=== PATIENT | female | born 1940 | race African-American/Black ===

== ENCOUNTER 2017-12-13 13:34 | Emergency (ER) | payer OTHER, MEDICAID ==
[~2017-12-13] VITALS: Ht 177.8 cm; Wt 66.0 kg
[2017-12-13] MEDS ORDERED: ACETAMINOPHEN WITH CODEINE 300/30MG TABLET PO STA (15:17)
[2017-12-13 16:59] VITALS: BP 171/83
== END 2017-12-13 17:54 | disposition home or self-care (01) ==
LOC: ER 13:34
DX: S52.532A Colles' fracture of left radius, initial encounter for closed fracture (principal); Z87.828 Personal history of other (healed) physical injury and trauma; W01.0XXA Fall on same level from slipping, tripping and stumbling without subsequent striking against object, initial encounter; Y93.89 Activity, other specified; Y92.018 Other place in single-family (private) house as the place of occurrence of the external cause
CPT/HCPCS: 29125; 73110; 73130; 99284

== ENCOUNTER 2020-11-19 20:36 | Emergency (ER) | payer OTHER, MEDICAID ==
[~2020-11-19] VITALS: Ht 170.2 cm; Wt 66.0 kg
[2020-11-19 21:23] VITALS: BP 141/88
[2020-11-20 00:10] LABS: CHLORIDE 104 mEq/L (98-107)
[2020-11-20 02:05] LABS: HEMATOCRIT. 42.7 % (36.0-48.0); HEMOGLOBIN. 13.3 g/dL (12.0-16.0); MEAN CORPUSCULAR HEMOGLOBIN 25.9 pg (28.0-32.0); MEAN CORPUSCULAR VOLUME 83.3 fL (81.0-99.0); MEAN PLATELET VOLUME 8.8 fl (7.4-10.4); PLATELET 318 x1000/uL (130-400); RED BLOOD CELL COUNT 5.13 mill/uL (4.2-5.4)
[2020-11-20] MEDS ORDERED: ALBU6.7H9 INH (02:19)
[2020-11-20 05:00] LABS: ATYPICAL LYMPHOCYTES 1
[2020-11-20 05:01] LABS: PLATELET ESTIMATE NORMAL
== END 2020-11-20 02:36 | disposition home or self-care (01) ==
LOC: ER 21:35
DX: J44.9 Chronic obstructive pulmonary disease, unspecified (principal); R06.02 Shortness of breath
CPT/HCPCS: 36415; 71045; 80053; 83880; 84484; 85025; 93005; 99285

== ENCOUNTER 2020-11-22 12:40 | Emergency (ER) | payer OTHER, MEDICAID ==
[~2020-11-22] VITALS: Ht 172.7 cm; Wt 66.0 kg
[~2020-11-22 12:40] MED LIST: ALBU6.7H9 INH
[2020-11-22] MEDS ORDERED: AZIT250T12 MT (13:44)
[2020-11-22] MEDS ORDERED: AMOX-424 MT (13:44)
[2020-11-22 14:55] VITALS: BP 130/64
== END 2020-11-22 14:59 | disposition home or self-care (01) ==
LOC: ER 12:40
DX: U07.1 COVID-19 (principal); J12.82 Pneumonia due to coronavirus disease 2019; M19.90 Unspecified osteoarthritis, unspecified site
CPT/HCPCS: 71045; 99284; C9803; U0003; U0005

== ENCOUNTER 2022-02-04 19:12 | Inpatient (IN) | payer OTHER, MEDICAID ==
[~2022-02-04] VITALS: Ht 185.4 cm; Wt 59.0 kg
[~2022-02-04 19:12] MED LIST changes: +AMOX-424 MT; +AZIT250T12 MT
[2022-02-04 21:39] LABS: BASOPHILS % 0.7 % (0.0-2.0); EOSINOPHILS % 1.3 % (0.0-5.0); HEMATOCRIT. 36.3 % (36.0-48.0); HEMOGLOBIN. 11.6 g/dL (12.0-16.0); LYMPHOCYTES % 22.3 % (20.0-50.0); MEAN CORPUSCULAR HEMOGLOBIN 26.2 pg (28.0-32.0); MEAN CORPUSCULAR VOLUME 82.1 fL (81.0-99.0); MEAN PLATELET VOLUME 9.8 fl (7.4-10.4); MONOCYTES % 10.9 % (2.0-8.0); NEUTROPHILS % 64.8 % (40.0-76.0); PLATELET 199 x1000/uL (130-400); RED BLOOD CELL COUNT 4.43 mill/uL (4.2-5.4); RED CELL DISTRIBUTION WIDTH 14.2 % (11.6-14.6)
[2022-02-04 21:47] LABS: CHLORIDE 112 mEq/L (98-107)
[2022-02-04 22:00] LABS: CREATINE KINASE 33 IU/L (26-192)
[2022-02-04] MEDS ORDERED: ACETAMINOPHEN 325MG TABLET PO ONE (22:30)
[2022-02-05 01:24] LABS: CLARITY URINE CLEAR (CLEAR); COLOR URINE YELLOW (YELLOW); KETONES URINE NEGATIVE (NEGATIVE); LEUKOCYTE ESTERASE URINE NEGATIVE (NEGATIVE); NITRITE URINE NEGATIVE (NEGATIVE); OCCULT BLOOD URINE NEGATIVE (NEGATIVE); PH URINE 6.5 (4.5-8.0); PROTEIN URINE NEGATIVE (NEGATIVE); SPECIFIC GRAVITY URINE 1.013 (1.005-1.030)
[2022-02-05 01:42] LABS: *AMPHETAMINES SCREEN URINE NEGATIVE (NEGATIVE); *BARBITURATES SCREEN URINE NEGATIVE (NEGATIVE); *BENZODIAZEPINES SCREEN URINE NEGATIVE (NEGATIVE); *COCAINE SCREEN URINE NEGATIVE (NEGATIVE); CANNABINOID URINE SCREEN NEGATIVE (NEGATIVE); METHADONE URINE SCREEN NEGATIVE (NEGATIVE); OPIATES URINE SCREEN NEGATIVE (NEGATIVE); PHENCYCLIDINE URINE SCREEN NEGATIVE (NEGATIVE)
[2022-02-05 09:50] VITALS: BP_SYST 147; BP_SYST 148; BP_DIAS 71
[2022-02-05 12:00] VITALS: BP 144/69
[2022-02-05] MEDS ORDERED: ONDANSETRON HCL 4MG/2ML INJ IV PRN (13:15)
[2022-02-05] MEDS ORDERED: ENOXAPARIN 40MG/0.4ML SYR SUBCUT SCH (14:00)
[2022-02-05 16:00] VITALS: BP 134/66
[2022-02-05 17:22] LABS: CREATINE KINASE 49 IU/L (26-192); CREATINE KINASE MB FRACTION < 1.0 ng/mL (0.5-3.6); HDL CHOLESTEROL 81 mg/dL (40-59); LDL CHOLESTEROL 95 mg/dL (5-100)
[2022-02-05] MEDS: PANTOPRAZOLE SODIUM 40 MG/VIAL IV SCH (17:41)
[2022-02-05] MEDS: LOSARTAN POTASSIUM 25 MG TABLET PO SCH (17:42)
[2022-02-05] MEDS: AMLODIPINE 5MG TABLET PO SCH (17:42)
[2022-02-05] MEDS: DOCUSATE SODIUM 100MG CAPSULE PO SCH ×2 (17:42→17:44)
[2022-02-05] MEDS: POLYETHYLENE GLYCOL 3350 (17GM) 1 DOSE PACK PO SCH (17:42)
[2022-02-05] MEDS: SODIUM CHLORIDE 0.9% 1,000 ML IV SCH (17:44)
[2022-02-05 20:00] VITALS: BP 122/62
[2022-02-05] MEDS ORDERED: DEXAMETHASONE 4MG/ML 1ML VIAL IV NR (22:00)
[2022-02-06] VITALS: BP 104/74
[2022-02-06] MEDS: SODIUM CHLORIDE 0.9% 1,000 ML IV SCH ×2 (03:03→16:47)
[2022-02-06] MEDS: ACETAMINOPHEN 325MG TABLET PO PRN ×2 (03:04→13:33)
[2022-02-06 04:00] VITALS: BP 145/69
[2022-02-06 08:00] VITALS: BP 132/77
[2022-02-06] MEDS: LOSARTAN POTASSIUM 25 MG TABLET PO SCH (08:53)
[2022-02-06] MEDS: PANTOPRAZOLE SODIUM 40 MG/VIAL IV SCH (08:53)
[2022-02-06] MEDS: POLYETHYLENE GLYCOL 3350 (17GM) 1 DOSE PACK PO SCH (08:53)
[2022-02-06] MEDS: DOCUSATE SODIUM 100MG CAPSULE PO SCH ×2 (08:53→16:42)
[2022-02-06] MEDS: AMLODIPINE 5MG TABLET PO SCH (08:54)
[2022-02-06] MEDS ORDERED: PNEUMOCOCCAL 23-VAL P-SAC VAC 0.5 ML IM ONE (10:00)
[2022-02-06 12:00] VITALS: BP 128/67
[2022-02-06] MEDS: DEXAMETHASONE 4MG/ML 1ML VIAL IV SCH ×2 (14:20→19:03)
[2022-02-06 16:00] VITALS: BP 167/88
[2022-02-06] MEDS: CLONIDINE 0.1MG TABLET PO PRN ×2 (16:40→16:42)
[2022-02-06 16:41] LABS: BASOPHILS % 0.4 % (0.0-2.0); EOSINOPHILS % 0.6 % (0.0-5.0); HEMATOCRIT. 38.6 % (36.0-48.0); HEMOGLOBIN. 12.3 g/dL (12.0-16.0); LYMPHOCYTES % 14.8 % (20.0-50.0); MEAN CORPUSCULAR HEMOGLOBIN 26.5 pg (28.0-32.0); MEAN PLATELET VOLUME 10.4 fl (7.4-10.4); MONOCYTES % 11.3 % (2.0-8.0); NEUTROPHILS % 72.9 % (40.0-76.0); PLATELET 212 x1000/uL (130-400); RED BLOOD CELL COUNT 4.65 mill/uL (4.2-5.4); RED CELL DISTRIBUTION WIDTH 14.5 % (11.6-14.6)
[2022-02-06] MEDS: HYDROCODONE/ACETAMINOPHEN 5/325MG TABLET PO PRN (16:44)
[2022-02-06 16:51] LABS: CHLORIDE 108 mEq/L (98-107)
[2022-02-06] MEDS ORDERED: NALOXONE HCL 0.4MG/ML VIAL IV PRN (18:30)
[2022-02-06 20:00] VITALS: BP 94/50
[2022-02-06] MEDS ORDERED: HALOPERIDOL LACTATE 5MG/ML VIAL IM PRN (21:15)
[2022-02-06 22:05] LABS: PROTHROMBIN TIME 10.9 sec (9.6-11.0)
[2022-02-07] VITALS (32 sets, daily range): BP systolic 86–237; BP diastolic 0–83
[2022-02-07] MEDS: DEXAMETHASONE 4MG/ML 1ML VIAL IV SCH ×4 (06:24→16:49)
[2022-02-07] MEDS: SODIUM CHLORIDE 0.9% 1,000 ML IV SCH (06:25)
[2022-02-07 06:37] LABS: HEMATOCRIT. 33.3 % (36.0-48.0); HEMOGLOBIN. 10.9 g/dL (12.0-16.0); MEAN CORPUSCULAR HEMOGLOBIN 26.5 pg (28.0-32.0); MEAN CORPUSCULAR VOLUME 80.5 fL (81.0-99.0); MEAN PLATELET VOLUME 10.5 fl (7.4-10.4); PLATELET 206 x1000/uL (130-400); RED BLOOD CELL COUNT 4.14 mill/uL (4.2-5.4); RED CELL DISTRIBUTION WIDTH 13.9 % (11.6-14.6)
[2022-02-07 06:46] LABS: CHLORIDE 109 mEq/L (98-107)
[2022-02-07] MEDS: POLYETHYLENE GLYCOL 3350 (17GM) 1 DOSE PACK PO SCH (09:00)
[2022-02-07] MEDS: LOSARTAN POTASSIUM 25 MG TABLET PO SCH (11:03)
[2022-02-07] MEDS: DOCUSATE SODIUM 100MG CAPSULE PO SCH ×2 (11:03→16:45)
[2022-02-07] MEDS: PANTOPRAZOLE SODIUM 40 MG/VIAL IV SCH (11:04)
[2022-02-07] MEDS: AMLODIPINE 5MG TABLET PO SCH (11:04)
[2022-02-07] MEDS ORDERED: GENTAMICIN SULF 40MG/ML 2ML VIAL ONE (12:15)
[2022-02-07] MEDS ORDERED: LIDOCAINE HCL/EPINEPHRINE 1%-EPI 1:100,000 20 ML VIAL ONE (12:15)
[2022-02-07] MEDS ORDERED: THROMBIN (BOVINE) 5000 UNITS/VIAL TOP ONE (12:15)
[2022-02-07] MEDS ORDERED: NICARDIPINE 40MG/200ML PREMIX 200 ML IV ONE (12:20)
[2022-02-07] MEDS ORDERED: ROCURONIUM BROMIDE 10MG/ML VIAL 5ML IV ONE (12:20)
[2022-02-07] MEDS ORDERED: SUCCINYLCHOLINE CHLORIDE 200MG/10ML IV ONE (12:20)
[2022-02-07] MEDS ORDERED: ONDANSETRON HCL 4MG/2ML INJ ONE ×2 (12:20→12:33)
[2022-02-07] MEDS ORDERED: LIDOCAINE HCL 2% 5ML SYRINGE IV ONE ×2 (12:20→12:30)
[2022-02-07] MEDS ORDERED: PROPOFOL 10MG/ML 100ML 100 ML IV ONE (12:21)
[2022-02-07] MEDS ORDERED: FENTANYL CITRATE/PF 50MCG/ML 2ML VIAL IV PRN (12:30)
[2022-02-07] MEDS ORDERED: FENTANYL CITRATE/PF 50MCG/ML 2ML VIAL ONE (12:30)
[2022-02-07] MEDS ORDERED: ACETAMINOPHEN 500MG TABLET ONE (12:34)
[2022-02-07] MEDS ORDERED: MORPHINE SULFATE 2 MG/ML CPJ (NOT FOR IM USE) IV PRN (13:30)
[2022-02-07] MEDS ORDERED: CEFAZOLIN SODIUM 1000MG/VIAL IV SCH (14:00)
[2022-02-07] MEDS ORDERED: DEXAMETHASONE 4MG/ML 1ML VIAL ONE (14:10)
[2022-02-07] MEDS ORDERED: NEOSTIGMINE METHYLSULFATE 1MG/ML 10 ML VIAL ONE (14:13)
[2022-02-07] MEDS ORDERED: GLYCOPYRROLATE 0.2 MG/ML 2ML VIAL ONE (14:13)
[2022-02-07] MEDS ORDERED: HYDROMORPHONE HCL/PF 2MG/ML CPJ IV PRN (15:30)
[2022-02-07] MEDS ORDERED: CALCIUM CHLORIDE 1GM/10ML SYR IV ONE (15:49)
[2022-02-07] MEDS: DEXT 5%/LACTATED RINGERS 1,000 ML IV SCH (16:45)
[2022-02-07] MEDS: NICARDIPINE 100 MG in SODIUM CHLORIDE 0.9% 60 ML IV PRN (16:49)
[2022-02-07 18:40] LABS: BG CARBOXYHEMOGLOBIN 0.3 % (0.5-1.5); BG DEOXYHEMOGLOBIN 0.9 % (0.0-5.0); BG FRACTION INSPIRED OXYGEN 60; BG HCO3 ACT 22.9 mmol/L (22.0-26.0); BG METHEMOGLOBIN 0.4 % (0.0-1.5); BG OXYGEN SATURATION 99.1 % (92.0-98.5); BG OXYHEMOGLOBIN 98.4 % (94.0-97.0); BG PCO2 39.8 mmHg (35.0-45.0); BG PH 7.378 (7.350-7.450); BG PO2 327.2 mmHg (75.0-100.0); BG SAMPLE SITE ALINE; BG TOTAL HEMOGLOBIN 11.3 g/dL (12.0-18.0); BG VENT MODE VENT - CPAP
[2022-02-07] MEDS: CEFAZOLIN 1000MG PREMIX 50 ML IV SCH (21:41)
[2022-02-08] VITALS (86 sets, daily range): BP systolic -2–155; BP diastolic -2–84
[2022-02-08] MEDS: DEXAMETHASONE 4MG/ML 1ML VIAL IV SCH ×4 (00:36→17:11)
[2022-02-08] MEDS: MORPHINE SULFATE 4 MG/ML CPJ (NOT FOR IM USE) IV PRN ×3 (00:36→20:55)
[2022-02-08] MEDS: DEXT 5%/LACTATED RINGERS 1,000 ML IV SCH ×3 (00:37→17:11)
[2022-02-08] MEDS: CEFAZOLIN 1000MG PREMIX 50 ML IV SCH ×3 (05:44→21:00)
[2022-02-08 07:18] LABS: PLATELET ESTIMATE NORMAL
[2022-02-08] MEDS: AMLODIPINE 5MG TABLET PO SCH (09:40)
[2022-02-08] MEDS: LOSARTAN POTASSIUM 25 MG TABLET PO SCH (09:40)
[2022-02-08] MEDS: POLYETHYLENE GLYCOL 3350 (17GM) 1 DOSE PACK PO SCH (09:40)
[2022-02-08] MEDS: PANTOPRAZOLE SODIUM 40 MG/VIAL IV SCH (09:40)
[2022-02-08] MEDS: DOCUSATE SODIUM 100MG CAPSULE PO SCH ×2 (09:40→17:11)
[2022-02-08] MEDS: NICARDIPINE 100 MG in SODIUM CHLORIDE 0.9% 60 ML IV PRN (12:03)
[2022-02-08] MEDS ORDERED: IPRATROPIUM/ALBUTEROL 0.5-3(2.5)MG/3ML NEB HHN PRN ×2 (16:00→16:15)
[2022-02-08] MEDS: IPRATROPIUM/ALBUTEROL 0.5-3(2.5)MG/3ML NEB HHN SCH ×2 (16:50→20:56)
[2022-02-09] VITALS (64 sets, daily range): BP systolic 81–152; BP diastolic 43–82
[2022-02-09] MEDS: DEXAMETHASONE 4MG/ML 1ML VIAL IV SCH ×3 (00:01→13:32)
[2022-02-09] MEDS: CLONIDINE 0.1MG TABLET PO PRN (00:02)
[2022-02-09] MEDS: IPRATROPIUM/ALBUTEROL 0.5-3(2.5)MG/3ML NEB HHN SCH ×6 (00:55→20:59)
[2022-02-09] MEDS: DEXT 5%/LACTATED RINGERS 1,000 ML IV SCH ×2 (05:05→13:32)
[2022-02-09 06:07] LABS: HEMATOCRIT. 32.7 % (36.0-48.0); HEMOGLOBIN. 10.5 g/dL (12.0-16.0); MEAN CORPUSCULAR HEMOGLOBIN 25.8 pg (28.0-32.0); MEAN CORPUSCULAR VOLUME 80.5 fL (81.0-99.0); MEAN PLATELET VOLUME 10.4 fl (7.4-10.4); PLATELET 214 x1000/uL (130-400); RED BLOOD CELL COUNT 4.06 mill/uL (4.2-5.4); RED CELL DISTRIBUTION WIDTH 13.9 % (11.6-14.6)
[2022-02-09 06:09] LABS: CHLORIDE 104 mEq/L (98-107)
[2022-02-09] MEDS: LOSARTAN POTASSIUM 25 MG TABLET PO SCH (09:12)
[2022-02-09] MEDS: PANTOPRAZOLE SODIUM 40 MG/VIAL IV SCH (09:12)
[2022-02-09] MEDS: POLYETHYLENE GLYCOL 3350 (17GM) 1 DOSE PACK PO SCH (09:12)
[2022-02-09] MEDS: DOCUSATE SODIUM 100MG CAPSULE PO SCH ×2 (09:13→19:06)
[2022-02-09] MEDS: AMLODIPINE 5MG TABLET PO SCH (09:13)
[2022-02-09 09:51] LABS: NUCLEATED RED BLOOD CELLS 1 /100 WBC; PLATELET ESTIMATE NORMAL
[2022-02-09] MEDS: MORPHINE SULFATE 4 MG/ML CPJ (NOT FOR IM USE) IV PRN (21:39)
[2022-02-10] VITALS (11 sets, daily range): BP systolic 121–143; BP diastolic 36–110
[2022-02-10] MEDS: DEXT 5%/LACTATED RINGERS 1,000 ML IV SCH ×2 (02:45→15:09)
[2022-02-10 06:42] LABS: HEMATOCRIT. 32.5 % (36.0-48.0); HEMOGLOBIN. 10.7 g/dL (12.0-16.0); MEAN CORPUSCULAR HEMOGLOBIN 26.4 pg (28.0-32.0); MEAN CORPUSCULAR VOLUME 80.3 fL (81.0-99.0); PLATELET 211 x1000/uL (130-400); RED BLOOD CELL COUNT 4.06 mill/uL (4.2-5.4); RED CELL DISTRIBUTION WIDTH 14.1 % (11.6-14.6)
[2022-02-10 07:23] LABS: CHLORIDE 108 mEq/L (98-107)
[2022-02-10] MEDS: IPRATROPIUM/ALBUTEROL 0.5-3(2.5)MG/3ML NEB HHN SCH ×5 (09:11→19:58)
[2022-02-10] MEDS: AMLODIPINE 5MG TABLET PO SCH (10:35)
[2022-02-10] MEDS: PANTOPRAZOLE SODIUM 40 MG/VIAL IV SCH (10:36)
[2022-02-10] MEDS: LOSARTAN POTASSIUM 25 MG TABLET PO SCH (10:36)
[2022-02-10] MEDS: POLYETHYLENE GLYCOL 3350 (17GM) 1 DOSE PACK PO SCH (10:36)
[2022-02-10] MEDS: DOCUSATE SODIUM 100MG CAPSULE PO SCH ×2 (10:37→15:10)
[2022-02-10] MEDS: HYDROCODONE/ACETAMINOPHEN 5/325MG TABLET PO PRN (17:18)
[2022-02-10 22:21] LABS: PLATELET ESTIMATE NORMAL
[2022-02-11] MEDS ORDERED: FAMOTIDINE 20MG/2ML VIAL IV SCH (09:00)
== END 2022-02-10 20:40 | DRG 471 ==
LOC: ER 19:12 → 8WST 02-05 04:08 → MICUNO 02-07 17:00 → 6WST 02-10 03:10
PROVIDERS: ADMIT Internal Medicine; ATTEND Internal Medicine
PROC: 0RG20A0 Fusion of 2 or more Cervical Vertebral Joints with Interbody Fusion Device, Anterior Approach, Anterior Column, Open Approach (ICD-10-PCS; principal; 2022-02-07)
DX: M48.02 Spinal stenosis, cervical region (principal); G82.50 Quadriplegia, unspecified; G95.9 Disease of spinal cord, unspecified; I31.3 Pericardial effusion (noninflammatory); G95.29 Other cord compression; Z20.822 Contact with and (suspected) exposure to COVID-19; M48.061 Spinal stenosis, lumbar region without neurogenic claudication; I10 Essential (primary) hypertension; F03.90 Unspecified dementia, unspecified severity, without behavioral disturbance, psychotic disturbance, mood disturbance, and anxiety; M16.0 Bilateral primary osteoarthritis of hip; Z86.73 Personal history of transient ischemic attack (TIA), and cerebral infarction without residual deficits
CPT/HCPCS: 36415; 36600; 70551; 71045; 72040; 72131; 72141; 72148; 72170; 73552; 74176; 76000; 80048; 80053; 80061; 80305; 81003; 82140; 82375; 82550; 82553; 82805; 82962; 83605; 83735; 83880; 84484; 85025; 86850; 86900; 87426; 88304; 88311; 90732; 93005; 93306; 93970; 94640; 94664; 95925; 95926; 95928; 95929; 99285; C1713; C9113; J0330; J0690; J1100; J1580; J1630; J1650; J2270; J2405; J2704; J2710; J3010; J3490; J7030; J7050; J7121; L0172; C1762